=== PATIENT | female | born 1960 | race Asian ===

== ENCOUNTER 2020-05-05 06:29 | Day surgery (SDC) | payer OTHER, SELFPAY ==
[~2020-05-05] VITALS: Ht 172 cm; Wt 66.2 kg
[2020-05-05] MEDS ORDERED: fentaNYL citrate 0.05 MG/ML VIAL ONE (07:28)
[2020-05-05] MEDS ORDERED: diphenhydrAMINE 50 MG/ML VIAL ONE (07:28)
[2020-05-05] MEDS ORDERED: LIDOCAINE 2% 100 MG/5 ML UJET TP ONE (07:28)
[2020-05-05] MEDS ORDERED: MIDAZOLAM 5 MG/5 ML VIAL ONE (07:28)
[2020-05-05] MEDS ORDERED: fentaNYL citrate 0.05 MG/ML VIAL IVP ONE (08:30)
[2020-05-05] MEDS ORDERED: MIDAZOLAM 2 MG/2 ML VIAL IVP ONE (08:30)
[2020-05-05] MEDS ORDERED: MIDAZOLAM 2 MG/2 ML VIAL IVP SCH (08:48)
[2020-05-05] MEDS ORDERED: fentaNYL citrate 0.05 MG/ML VIAL IVP SCH (08:49)
== END 2020-05-05 09:01 | disposition home or self-care (01) ==
LOC: MDS 06:29 → MFCC 06:30 → MDS 09:01
PROVIDERS: ATTEND Internal Medicine Gastroenterology
DX: Z12.11 Encounter for screening for malignant neoplasm of colon (principal); Z87.19 Personal history of other diseases of the digestive system; B96.81 Helicobacter pylori [H. pylori] as the cause of diseases classified elsewhere; Z80.0 Family history of malignant neoplasm of digestive organs; Z88.1 Allergy status to other antibiotic agents; Z79.899 Other long term (current) drug therapy; Z20.828 Contact with and (suspected) exposure to other viral communicable diseases
CPT/HCPCS: 43239; 45378; 88305; 88312; 88313; 88342; J2250; J3010; U0003; J1200

== ENCOUNTER 2020-06-23 05:39 | Day surgery (SDC) | payer OTHER, SELFPAY ==
[~2020-06-23] VITALS: Ht 170.2 cm; Wt 70.8 kg
[2020-06-23] MEDS ORDERED: fentaNYL citrate 0.05 MG/ML VIAL ONE (07:17)
[2020-06-23] MEDS ORDERED: diphenhydrAMINE 50 MG/ML VIAL ONE (07:17)
[2020-06-23] MEDS ORDERED: MIDAZOLAM 2 MG/2 ML VIAL ONE (07:18)
[2020-06-23] MEDS ORDERED: LIDOCAINE 2% 100 MG/5 ML UJET TP ONE ×2 (07:18→10:05)
[2020-06-23] MEDS ORDERED: MIDAZOLAM 2 MG/2 ML VIAL IVP ONE (10:05)
[2020-06-23] MEDS ORDERED: fentaNYL citrate 0.05 MG/ML VIAL IVP ONE (10:05)
== END 2020-06-23 08:53 | disposition home or self-care (01) ==
LOC: MDS 05:39 → MMU 06:16 → MDS 08:53
PROVIDERS: ATTEND Internal Medicine Gastroenterology
DX: Z12.11 Encounter for screening for malignant neoplasm of colon (principal); K29.50 Unspecified chronic gastritis without bleeding; K22.70 Barrett's esophagus without dysplasia; Z20.828 Contact with and (suspected) exposure to other viral communicable diseases
CPT/HCPCS: 43239; 45378; J2250; J3010; U0003; J1200